=== PATIENT | male | born 1960 | race African-American/Black ===

== ENCOUNTER 2017-11-25 15:25 | Emergency (ER) | payer OTHER, MEDICAID | END 2017-11-25 15:59 | disposition home or self-care (01) | LOC: E/R 15:25 | DX: G89.29 Other chronic pain (principal); I10 Essential (primary) hypertension; F17.210 Nicotine dependence, cigarettes, uncomplicated; R10.32 Left lower quadrant pain | CPT/HCPCS: 99282; Z7502 ==

== ENCOUNTER 2018-10-23 08:45 | Emergency (ER) | payer OTHER | END 2018-10-23 11:15 | disposition home or self-care (01) | LOC: E/R 08:45 | DX: R10.9 Unspecified abdominal pain (principal); I12.9 Hypertensive chronic kidney disease with stage 1 through stage 4 chronic kidney disease, or unspecified chronic kidney disease; N18.9 Chronic kidney disease, unspecified; Z87.891 Personal history of nicotine dependence; Z72.89 Other problems related to lifestyle | CPT/HCPCS: 99283; Z7502 ==